=== PATIENT | male | born 1950 | race Caucasian/White ===

== ENCOUNTER 2017-03-20 00:29 | Emergency (ER) | payer SELFPAY ==
[~2017-03-20] VITALS: Ht 175.3 cm; Wt 74.7 kg
[~2017-03-20 00:29] MED LIST: CYCL-36 PO; DIFL500T PO; Z.0.NO CURRENT MEDS
[2017-03-20 00:34] VITALS: BP 158/88; PULSE 87; RESP 16; RESP 18; TEMP 98.3; O2SAT 96
[2017-03-20 01:04] VITALS: BP 158/88; PULSE 87; RESP 18; TEMP 98.3; O2SAT 96
--- NOTE | 2017-03-20 01:05 | PD ---
HPI Chief Complaint: Injury Time Seen by Provider: 00:59 Travel History International Travel<30 days: No Contact w/Intl Traveler<30days: No Traveled to known affect area: No History of Present Illness HPI 67-year-old male presents to the emergency department by private transportation for complaint of right shoulder injury 3 weeks. 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 Since that time patient has noted some swelling and has had decreased range of motion of the right shoulder. Patient states prior to this he did not have any issues with his right shoulder. Patient is self-employed. Patient does not report any upper extremity numbness tingling or weakness. Patient is right-handed. Patient states this is interfering with him being able to light his own cigarettes. Patient admits to 2 packs of tobacco use daily. Patient states he has a history of hepatitis C used to be followed by Dr. Larios but lost his insurance so has not seen anyone in several years. Patient is also concerned he could have diabetes because he is tingling in his fingers and feet and he has heard that that's related to diabetes. Patient also admits to use of marijuana. Patient takes no prescription medications. Patient occasionally takes aspirin for pain. Patient denies other concerns or complaints. Pain with attempted range of motion of the right shoulder is moderate to severe. [facility] Past Medical History Narrative Medical Tobaccoism marijuana use; nursing notes reviewed; medical record reviewed chronic back pain Diminished Hearing: No Past Surgical History Oral Surgery: Yes (ALL REMOVED) Social History Alcohol Use: No Tobacco Use: Yes (3 PPD) Substance Use: No Allergies-Medications (Allergen,Severity, Reaction): Coded Allergies: No Known Allergies (Verified , 02/20/11) Reported Meds & Prescriptions Reported Meds & Active Scripts Active Flexeril (Cyclobenzaprine HCl) 10 Mg Tab 10 Mg PO TID Dolobid (Diflunisal) 500 Mg Tab 500 Mg PO BIDPRN FOR PAIN Reported No Current Meds (Miscellaneous Medication) Misc Review of Systems Except as stated in HPI: all other systems reviewed are Neg General / Constitutional: No: Fever, Chills HENT: No: Congestion Cardiovascular: No: Chest Pain or Discomfort Respiratory: No: Shortness of Breath Gastrointestinal: No: Abdominal Pain Genitourinary: No: Flank Pain Musculoskeletal: Positive: Pain (right shoulder) Skin: No Rash Neurologic: No: Weakness Psychiatric: No: Anxiety Hematologic/Lymphatic: No: Easy Bruising Physical Exam Narrative GENERAL: Well-developed well-nourished male in no acute distress no respiratory distress SKIN: Warm and dry. HEAD: Normocephalic. EYES: No scleral icterus. No injection or drainage. NECK: Supple, trachea midline. No JVD or lymphadenopathy. CARDIOVASCULAR: Regular rate and rhythm without murmurs, gallops, or rubs. RESPIRATORY: Breath sounds equal bilaterally. No accessory muscle use. GASTROINTESTINAL: Abdomen soft, non-tender, nondistended. MUSCULOSKELETAL: No cyanosis, or edema. Attention right shoulder mild swelling decreased range of motion on attempted extension and abduction and adduction no attempt of internal/external rotation distally extremity is neurovascular tendon intact capillary refill brisk less than 2 seconds radial pulse 2+ to palpation sensory exam intact. BACK: Nontender without obvious deformity. No CVA tenderness. Data Data Last Documented VS Vital Signs Date Time Temp Pulse Resp B/P (MAP) Pulse Ox O2 Delivery O2 Flow Rate FiO2 03/20/17 01:07 18 96 Room Air 03/20/17 01:04 98.3 87 158/88 (111) Orders Orders Shoulder, Complete (>2vws) (03/20/17 ) Blood Glucose (03/20/17 00:59) [facility] Medical Decision Making Medical Screen Exam Complete: Yes Emergency Medical Condition: Yes Medical Record Reviewed: Yes Interpretation(s) Last Impressions Shoulder X-Ray 03/20/17 0000 Signed Impressions: Service Date/Time: February 01:06 - CONCLUSION: 1. No acute findings. Mild osteoarthritis of the right shoulder. Rafiq Lua MD Differential Diagnosis Bursitis tendinitis rotator cuff tear acromioclavicular separation avulsion fracture arthritis Narrative Course Imaging of the right shoulder ordered along with patient request for glucose to be checked random glucose: 111; right shoulder xr: nabi; arthritis Patient informed of imaging results; patient administered sling; patient stable for outpatient management Diagnosis Primary Impression: Right shoulder injury Qualified Codes: S49.91XA - Unspecified injury of right shoulder and upper arm , initial encounter Referrals: [facility] call for appointment Orthopedist call for appointment Primary Care Physician Patient Instructions: General Instructions Additional Instructions: Wear sling Follow-up with orthopedist May use pain medication as prescribed as needed; do not handle heavy equipment, drive vehicle, drink alcohol, or climb ladders or swim while taking this medication May take ibuprofen high dose for pain associated with inflammation avoid prolonged use of this medication for greater than 2-3 days and take with food May use moist heat or ice intermittently to the area of soft tissue injury as tolerated Return to the emergency department for any concerns or change in condition Recommend discontinuing tobacco use Med/Other Pt SpecificInfo: Prescription(s) given Scripts Ibuprofen (Ibuprofen) 800 Mg Tab 800 MG PO Q8H Y for PAIN GREATER THAN 5, #12 TAB 0 Refills Prov: Liat Box MD 03/20/17 Tramadol (Ultram) 50 Mg Tab 50 MG PO Q6H Y for PAIN, #7 TAB 0 Refills Prov: Liat Box MD 03/20/17 Disposition: 01 DISCHARGE HOME Condition: Stable Liat Box MD Mar 20, 2017 01:05
--- NOTE | 2017-03-20 01:29 | RADRPT ---
EXAM DATE/TIME: 03/20/2017 01:06 [place] COMPARISON: No previous studies available for comparison. INDICATIONS : Right shoulder pain for three weeks. Patient states he lifted something over his head and felt a tear . MEDICAL HISTORY : None. SURGICAL HISTORY : None. ENCOUNTER: Initial ACUITY: 3 weeks PAIN SCORE: 9/10 LOCATION: Right shoulder. FINDINGS: Multiple view examination of the right shoulder demonstrates no evidence of fracture or dislocation. There is normal range of motion between internal and external rotation. Bony mineralization is norm al. CONCLUSION: 1. No acute findings. Mild osteoarthritis of the right shoulder. Rafiq Lua MD on March 20, 2017 at 1:23 Board Certified Radiologist. This report was verified electronically.
[2017-03-20] MEDS ORDERED: IBUP800T23 PO (01:48)
[2017-03-20] MEDS ORDERED: ULTR50TA5 PO (01:48)
[2017-03-20] MEDS ORDERED: IBUPROFEN 800 MG TAB PO ONE (02:00)
[2017-03-20 02:01] VITALS: BP 145/86
== END 2017-03-20 02:14 | disposition home or self-care (01) ==
LOC: PHED 00:29
DX: S49.91XA Unspecified injury of right shoulder and upper arm, initial encounter (principal); F17.210 Nicotine dependence, cigarettes, uncomplicated; X50.0XXA Overexertion from strenuous movement or load, initial encounter; Y99.0 Civilian activity done for income or pay
CPT/HCPCS: 73030; 99283